=== PATIENT | female | born 1935 | race Asian ===

== ENCOUNTER 2019-02-19 10:40 | Emergency (ER) | payer MEDICARE, OTHER ==
[~2019-02-19] VITALS: Ht 160 cm; Wt 79.0 kg
[2019-02-19 10:53] VITALS: BP 142/85
--- NOTE | 2019-02-19 10:53 | NUR ---
bibdaughter, from home, c/o r shoulder pain and r arm pain s/p tripped and fall 02/13/19, pain started 02/15/1911/23 ps, takes ibuprofen 500mg,-ko. on room air, breathing evenly and unlabored. Ambulatory with steady gait. Kept comfortable, will continue to monitor accordingly.
== END 2019-02-19 12:13 | disposition home or self-care (01) ==
LOC: ER 10:42
DX: M54.12 Radiculopathy, cervical region (principal); I10 Essential (primary) hypertension; M19.90 Unspecified osteoarthritis, unspecified site; Z85.43 Personal history of malignant neoplasm of ovary; W01.0XXA Fall on same level from slipping, tripping and stumbling without subsequent striking against object, initial encounter; Y93.89 Activity, other specified; Y92.89 Other specified places as the place of occurrence of the external cause; Y99.8 Other external cause status
CPT/HCPCS: 72040-TC; 73030-TC; 73080-TC